=== PATIENT | female | born 1990 | race Caucasian/White ===

== ENCOUNTER 2017-12-27 04:58 | Day surgery (SDC) | payer OTHER ==
[2017-12-26 08:32] VITALS: BMI 28.0
[2017-12-27] MEDS ORDERED: BUPIVACAINE HCL/PF 0.5% (5MG/ML) 10 ML VIAL ONE (09:14)
[2017-12-27] MEDS ORDERED: LIDOCAINE 1%/EPI 1:100000 (20 ML MULTI DOSE VIAL) ONE (09:14)
--- NOTE | 2017-12-27 09:16 | HP ---
Satellite [facility] - Chief Complaint Chief Complaint: LEFT KNEE PAIN History Source: Patient - Past Medical History Allergies/Adverse Reactions: Allergies Allergy/AdvReac Type Severity Reaction Status Date / Time No Known Allergies Allergy Verified 12/26/17 08:32 ...LMP: 12/19/17 - Current Medications Current Medications: Home Medications Medication Instructions Recorded NK [No Known Home Medication] 12/26/17 Satellite Physical Exam - Physical Examination Vital Signs: Vital Signs Period Temp Pulse Resp BP Sys/Silva Pulse Ox Last 24 Hr 98.4 F 86 18 110/56 97 Extremities: Other (+ JOINT LINE TENDERNESS) Satellite Impression/Plan - Impression/Plan Impression: INTERNAL DERANGEMENT LEFT KNEE Operative Procedure: ARTHROSCOPY LEFT KNEE Date to be Performed: 12/27/17
[2017-12-27] MEDS ORDERED: MIDAZOLAM HCL 2 MG/2 ML SINGLE DOSE VIAL ONE (09:21)
[2017-12-27] MEDS ORDERED: PROPOFOL 20 ML ONE (09:27)
[2017-12-27] MEDS ORDERED: LIDOCAINE HCL/PF 2% SDV 5ML VIAL ONE (09:27)
[2017-12-27] MEDS ORDERED: DEXAMETHASONE SOD PHOSPHATE 4 MG/1 ML VIAL ONE (09:28)
--- NOTE | 2017-12-27 09:56 | OP ---
Operative Note - Note: Operative Date: 12/27/17 ([facility]) Pre-Operative Diagnosis: left knee internal derangement Operation: left knee arthroscopy with PMM and PLM Post-Operative Diagnosis: Same as Pre-op Surgeon: Paulo Alexandra Customer Consultant: Ronald Gaitan Anesthesiologist/MACHINE BILLER: Jerry Grace Anesthesia: General, Local Specimens Removed: shavings Estimated Blood Loss (mls): 5 Operative Report Dictated: Yes
[2017-12-27] MEDS ORDERED: ONDANSETRON 4 MG/2 ML VIAL IVPUSH PRN (10:04)
[2017-12-27] MEDS ORDERED: oxyCODONE HCL 5 MG TABLET PO PRN (10:04)
[2017-12-27] MEDS ORDERED: LACTATED RINGERS SOLUTION 1,000 ML IV SCH (10:15)
[2017-12-27 11:19] VITALS: TEMP 97.9
[2017-12-27 11:26] VITALS: PULSE 68
--- NOTE | 2017-12-27 12:16 | OP ---
DATE OF OPERATION: 12/27/2017 PREOPERATIVE DIAGNOSIS: Internal derangement, left knee. POSTOPERATIVE DIAGNOSIS: Internal derangement, left knee. PROCEDURE: Arthroscopy, left knee, with partial medial and lateral meniscectomy. SURGICAL ATTENDING: Paulo Alexandra MD MATERIALS SCIENTIST: Ronald Gaitan MD ANESTHESIA: General with LMA. CLOSURE: 4-0 nylon. COMPLICATIONS: None. CONDITION: To recovery in stable condition. DESCRIPTION OF OPERATIVE PROCEDURE: The patient taken to the operating room on December 27, 2017. General anesthesia with LMA was administered by the anesthesiologist. Left lower extremity was prepped and draped in the usual sterile fashion. The medial and lateral infrapatellar portal sites were infiltrated with 1% xylocaine with epinephrine. Both portals were then made with a 15-blade for blunt trocar. The scope was placed in the inferolateral portal to the suprapatellar pouch. The knee was infused with a cocktail of 10 mL of 1% xylocaine, 10 mL of 0.5% Marcaine, and 20 mL of arthroscopic saline. After the anesthetic was allowed to sit in the knee for a while, we continued with the procedure. The medial and lateral gutters were visualized to be clean. The undersurfaces of the patella and trochlea were visualized to be intact. With valgus stress on the knee, the medial compartment was entered, and medial meniscus had a small flap tear of its anterior horn. This was debrided back to stable meniscal tissue with meniscal biter and arthroscopic shaver. The medial femoral condyle was probed and found to be intact, as well as the medial tibial plateau. At 90 degrees, the ACL was visualized and probed and found to be intact. In the figure-of-4 position, the lateral compartment was entered. The lateral meniscus also had a small flap tear of its posterior horn. This was debrided back to stable meniscal tissue with meniscal biter and arthroscopic shaver. The lateral femoral condyle was found to be intact, as well as the lateral tibial plateau. The knee was irrigated with copious amounts of irrigation. The portal was closed with 4-0 nylon. Prior to closure, 20 mL of 0.5% Marcaine was infused into the knee for postoperative analgesia. Sterile pressure dressing was placed over the knee. The patient awakened from anesthesia and transferred to recovery in stable condition with no complication. ESTIMATED BLOOD LOSS: Negligible. Gely SINGH/[id number]
[2017-12-27 14:21] VITALS: BP 100/58
--- NOTE | 2017-12-28 17:55 | PATH ---
Surgical Pathology Report Patient Name: CARLOS LOPEZ [facility]. Rec. #: [id number] /Age/Gender: 1990 (Age: 27) / F Account: [id number] Location: [facility] SURGICAL Taken: 12/27/2017 Received: 12/27/2017 Reported: 12/28/2017 Physicians: Gely Belcher M.D. Specimen(s) Received LEFT KNEE SHAVINGS Clinical History Left knee tear Final Diagnosis KNEE SHAVINGS, LEFT, ARTHROSCOPY: FRAGMENTS OF DENSE FIBROCONNECTIVE TISSUE, ADIPOSE TISSUE, SKIN, AND SYNOVIUM. Electronically Signed Ana Flores M.D. Gross Description Received in formalin labeled "left knee shavings," is a 2.2 x 1.5 x 0.2 cm aggregate of chatterjee soft tissue fragments. The specimen is entirely submitted in one cassette. 12/27/201712/27/2017
== END 2017-12-27 12:55 | disposition home or self-care (01) ==
LOC: JASU-SURG 04:58
PROVIDERS: ATTEND Orthopaedic Surgery
PROC: 0SBD4ZZ Excision of Left Knee Joint, Percutaneous Endoscopic Approach (ICD-10-PCS; 2017-12-27)
PROC: 0SBD4ZZ Excision of Left Knee Joint, Percutaneous Endoscopic Approach (ICD-10-PCS; principal; 2017-12-27 09:30)
DX: M23.8X2 Other internal derangements of left knee (principal)
CPT/HCPCS: 84703; 88304-TC

== ENCOUNTER 2018-10-18 16:27 | Emergency (ER) | payer OTHER ==
--- NOTE | 2018-10-18 16:42 | PDOC ---
Rapid Medical Evaluation Time Seen by Provider: 10/18/18 16:40 Medical Evaluation: Allergies Allergy/AdvReac Type Severity Reaction Status Date / Time No Known Allergies Allergy Verified 12/26/17 08:32 10/18/18 16:40 I have performed a brief in-person evaluation of this patient. The patient presents with a chief complaint of:shortness of breath , tightness, recent URI with cough no asthma history Pertinent physical exam findings:lungs CTA b/laterally I have ordered the following:urine The patient will proceed to the ED for further evaluation.
[2018-10-18 16:47] VITALS: BP 101/67; PULSE 84; TEMP 97.8; BMI 26.2
--- NOTE | 2018-10-18 18:03 | PDOC ---
History of Present Illness - General Chief Complaint: Shortness of Breath Stated Complaint: Shortness of Breath Time Seen by Provider: 10/18/18 16:40 History Source: Patient Exam Limitations: No Limitations - History of Present Illness Initial Comments: 10/18/18 17:58 HISTORY OF PRESENT ILLNESS: 28-year-old woman presents emergency department for evaluation of nasal congestion cough and intermittent shortness of breath since August. Patient reports that the coughing and shortness of breath and become more frequent over that time. Patient reports occasionally when she is coughing , she becomes lightheaded which worsens when she changes positions. She denies fevers, chills, headaches, blurry vision, chest pain, abdominal pain, nausea, vomiting. No recent travel or sick contacts. PAST MEDICAL HISTORY: Denies past medical history SURGICAL HISTORY: Denies ALLERGIES: No known drug allergies REVIEW OF SYSTEMS General/Constitutional: Denies fever or chills. Denies weakness, weight change. HEENT: Denies change in vision. Denies ear pain or discharge. Denies sore throat. Cardiovascular: Denies chest pain. +shortness of breath. Respiratory: Dry unproductive cough. Denies wheezing, or hemoptysis. Gastrointestinal: Denies nausea, vomiting, diarrhea or constipation. Denies rectal bleeding. Genitourinary: Denies dysuria, frequency, or change in urination. Musculoskeletal: Denies joint or muscle swelling or pain. Denies neck or back pain. Skin and breasts: Denies rash or easy bruising. Neurologic: Denies headache, vertigo, loss of consciousness, or loss of sensation. Psychiatric: Denies depression or anxiety. Endocrine: Denies increased thirst. Denies abnormal weight change. Hematologic/Lymphatic: Denies anemia, easy bleeding, or history of blood clots. Allergic/Immunologic: Denies hives or skin allergy. Denies latex allergy. PHYSICAL EXAM General Appearance: Well-appearing, appropriately dressed. No apparent distress , no intoxication. HEENT: EOMI, PERRLA, normal ENT inspection, normal voice, pharynx normal. No conjunctival pallor. No photophobia, scleral icterus. TM's retracted bilaterally. OP mildly erythematous. Neck: Supple. Trachea midline. No tenderness, rigidity, carotid bruit, stridor , lymphadenopathy, or thyromegaly. Respiratory/Chest: Lungs CTAB. No shortness of breath, chest tenderness, respiratory distress, accessory muscle use. No crackles, rales, rhonchi, stridor , wheezing, dullness Cardiovascular: RRR. S1, S2. No JVD, murmur, bradycardia, tachycardia. Vascular Pulses: Dorsalis-Pedis (R): 2+, Dorsalis-Pedis (L): 2+ Gastrointestinal/Abdominal: Normal bowel sounds. Abdomen soft, non-distended. No tenderness or rebound tenderness. No organomegaly, pulsatile mass, guarding, hernia, hepatomegaly, splenomegaly. Lymphatic: No adenopathy, tenderness. Musculoskeletal/Extremities: Normal inspection. FROM of all extremities, normal capillary refill. Pelvis Stable. No CVA tenderness. No tenderness to extremities, pedal edema, swelling, erythema or deformity. Integumentary: Appropriate color, dry, warm. No cyanosis, erythema, jaundice or rash Neurologic: merchandise worker II-XII intact. Fully oriented, alert. Appropriate mood/affect. Motor strength 5/5. No appreciable EOM palsy, facial droop or sensory deficit. Past History - Past Medical History Allergies/Adverse Reactions: Allergies Allergy/AdvReac Type Severity Reaction Status Date / Time No Known Allergies Allergy Verified 10/18/18 16:40 Home Medications: Ambulatory Orders Oxycodone HCl/Acetaminophen [Percocet 5-325 mg Tablet -] 1 - 2 tab PO Q6H #30 tab MDD 8 12/27/17 Anemia: No Asthma: No Cancer: No Cardiac Disorders: No CVA: No COPD: No CHF: No Dementia: No Diabetes: No GI Disorders: No Disorders: No HTN: No Hypercholesterolemia: No Liver Disease: No Seizures: No Thyroid Disease: No - Immunization History Immunization Up to Date: Yes - Suicide/Smoking/Psychosocial Hx Smoking History: Never smoked Have you smoked in the past 12 months: No Hx Alcohol Use: No Drug/Substance Use Hx: No Substance Use Type: None Hx Substance Use Treatment: No *Physical Exam - Vital Signs Last Vital Signs Temp Pulse Resp BP Pulse Ox 97.8 F 84 18 101/67 100 10/18/18 16:40 10/18/18 16:40 10/18/18 16:40 10/18/18 16:40 10/18/18 16:40 Moderate Sedation - Procedure Monitoring Vital Signs: Procedure Monitoring Vital Signs Temperature 97.8 F 10/18/18 16:40 Pulse Rate 84 10/18/18 16:40 Respiratory Rate 18 10/18/18 16:40 Blood Pressure 101/67 10/18/18 16:40 O2 Sat by Pulse Oximetry (%) 100 10/18/18 16:40 Medical Decision Making - Medical Decision Making 10/18/18 18:36 A/P: 28 old female cough and shortness of breath for the past 10 weeks TMs retracted bilaterally Oropharynx mildly erythematous Respirations even and unlabored Patient is speaking in full sentences Lungs clear to auscultation bilaterally RRR. No murmur, rub or gallop noted Exam is consistent with upper respiratory infection. I'll discharge the patient home with symptomatic treatment. *DC/Admit/Observation/Transfer Diagnosis at time of Disposition: URI (upper respiratory infection) Qualifiers: URI type: unspecified viral URI Qualified Code(s): J06.9 - Acute upper respiratory infection, unspecified - Discharge Dispostion Disposition: HOME Condition at time of disposition: Stable Decision to Admit order: No - Referrals Referrals: Anna Meléndez [Primary Care Provider] - - Patient Instructions Additional Instructions: Rest, drink lots of fluids: Teas, water, soups, Pedialyte Saltwater gargles Steamy showers/seem to face break up mucus Avoid contact with others until fevers and cough resolved Lots of handwashing and good hygiene Continue [id number] medications for symptomatic relief Tylenol or Motrin for fever and pain Followup with private physician in one to 2 days as needed Return to emergency department for worsened symptoms, fevers, dehydration - Post Discharge Activity
--- NOTE | 2018-10-19 09:09 | EKG ---
Test Reason : Blood Pressure : / mmHG Vent. Rate : 066 BPM Atrial Rate : 066 BPM P-R Int : 148 ms QRS Dur : 088 ms QT Int : 426 ms P-R-T Axes : 048 094 071 degrees QTc Int : 446 ms NORMAL SINUS RHYTHM RIGHTWARD AXIS BORDERLINE ECG NO PREVIOUS ECGS AVAILABLE Confirmed by HILARIO RUSH, NELLY ([id number]) on 10/19/2018 9:09:15 AM Referred By: Confirmed By:NELLY RICH MD
== END 2018-10-18 18:46 | disposition home or self-care (01) ==
LOC: JER 16:27 → JERFT 16:27
DX: J06.9 Acute upper respiratory infection, unspecified (principal)
CPT/HCPCS: 84703; 93005; 93010; 99281-25

== ENCOUNTER 2021-07-31 17:15 | Inpatient (IN) | payer OTHER ==
[2021-07-31] MEDS ORDERED: AMPICILLIN - 2 GM in SODIUM CHLORIDE 100 ML IVPB ONE (20:30)
[2021-07-31 20:42] VITALS: BMI 35.7
[2021-07-31] MEDS ORDERED: AMPICILLIN SODIUM 2 GM VIAL ONE (21:11)
[2021-07-31] MEDS ORDERED: PCA PUMP NR ONE (21:11)
[2021-07-31] MEDS ORDERED: LIDOCAINE HCL 1% PRESERVATIVE FREE - 30ML VIAL ONE (21:11)
[2021-07-31] MEDS ORDERED: FENTANYL/BUPIVACAINE/NS/PF - PCEA - 50 ML DISP.SYRIN EP ONE (21:11)
[2021-07-31] MEDS ORDERED: ELECTROLYTE-148 SOLN 1,000 ML IV ONE (21:45)
[2021-07-31] MEDS ORDERED: BUPIVACAINE HCL/PF 0.25% (2.5MG/ML) 10 ML VIAL ONE (21:47)
[2021-07-31] MEDS ORDERED: ELECTROLYTE-148 SOLN 1,000 ML IV SCH (22:15)
[2021-07-31] MEDS: FENTANYL/BUPIVACAINE/NS/PF - PCEA - 50 ML DISP.SYRIN EP SCH (22:20)
[2021-07-31] MEDS ORDERED: NALOXONE HCL 0.4 MG/ML VIAL IVPUSH PRN (22:35)
[2021-07-31] MEDS ORDERED: AMPICILLIN SODIUM 1 GM VIAL ONE (22:40)
[2021-08-01] MEDS: AMPICILLIN - 1 GM in SODIUM CHLORIDE 100 ML IVPB SCH ×4 (00:35→13:29)
[2021-08-01] MEDS ORDERED: PCA PUMP NR ONE ×2 (01:40→05:55)
[2021-08-01] MEDS ORDERED: FENTANYL/BUPIVACAINE/NS/PF - PCEA - 50 ML DISP.SYRIN EP ONE ×2 (01:40→10:20)
[2021-08-01] MEDS: FENTANYL/BUPIVACAINE/NS/PF - PCEA - 50 ML DISP.SYRIN EP SCH (02:20)
[2021-08-01] MEDS ORDERED: BUPIVACAINE HCL/PF 0.25% (2.5MG/ML) 10 ML VIAL ONE (02:52)
[2021-08-01] MEDS ORDERED: AMPICILLIN SODIUM 1 GM VIAL ONE ×2 (03:59→08:39)
[2021-08-01] MEDS ORDERED: OXYTOCIN 30 UNITS in 0.9% NS 30 UNIT/500 ML INFUS.BAG IVPB ONE (04:53)
[2021-08-01] MEDS ORDERED: OXYTOCIN 30 UNITS in 0.9% NS 30 UNIT/500 ML INFUS.BAG IVPB SCH (05:00)
[2021-08-01] MEDS ORDERED: LIDOCAINE HCL 1% PRESERVATIVE FREE - 30ML VIAL ONE (10:17)
[2021-08-01] MEDS ORDERED: OXYTOCIN 20 UNITS in 0.9% NS 20 UNIT/1,000 ML INFUS.BAG IV ONE (10:17)
[2021-08-01] MEDS ORDERED: BENZOCAINE 20% 57 GM BOTTLE TP PRN (11:01)
[2021-08-01] MEDS ORDERED: ACETAMINOPHEN 325 MG TABLET (FP) PO PRN ×2 (11:01→11:09)
[2021-08-01] MEDS ORDERED: METHYLERGONOVINE MALEATE 0.2 MG/1 ML AMP IM PRN (11:01)
[2021-08-01] MEDS ORDERED: WITCH HAZEL 50% (TUCKS) 40 PAD/JAR PAD TP PRN (11:01)
[2021-08-01] MEDS ORDERED: IBUPROFEN 600 MG TABLET (FP) PO PRN ×2 (11:01→11:09)
[2021-08-01] MEDS ORDERED: BENZOCAINE 28 GM HEMORRHOIDAL OINTMENT TP PRN (11:01)
[2021-08-01] MEDS ORDERED: BISACODYL 10 MG SUPP.RECT RC PRN (11:01)
[2021-08-01 11:06] LABS: CORD BASE EXCESS -6.1 mmol/L (0-2); CORD HCO3 18.3 mmHg (20-29); CORD PCO2 33.5 mmHg (30-78); CORD pH 7.355 (7.14-7.44)
[2021-08-01 11:09] LABS: CORD PCO2 54.9 mmHg (30-78); CORD pH 7.221 (7.14-7.44)
[2021-08-01] MEDS ORDERED: OXYTOCIN 20 UNITS in 0.9% NS 20 UNIT/1,000 ML INFUS.BAG IV SCH (11:15)
[2021-08-02 08:39] LABS: BASO % 0.1 % (0-2.0); EOS % 0.5 % (0-4.5); HEMATOCRIT 28.4 % (32.4-45.2); MCH 33.5 pg (25.7-33.7); MEAN CELL VOLUME 95.7 fl (80-96); MONO % 9.6 % (3.8-10.2); NEUT % 79.8 % (42.8-82.8); PLATELET COUNT 263 10^3/uL (134-434); RBC 2.97 M/mm3 (3.60-5.2); RDW 13.7 % (11.6-15.6); WHITE BLOOD COUNT 19.6 K/mm3 (4.0-10.0)
[2021-08-02] MEDS: PRENATAL VITAMINS W/ FOLIC ACID TABLET (FP) PO SCH (10:12)
[2021-08-02] MEDS ORDERED: SENNOSIDES/DOCUSATE COMBO (SENNA PLUS) TABLET (UD) PO PRN (22:00)
[2021-08-03 09:25] VITALS: BP 115/73; PULSE 74; TEMP 98.6
[2021-08-03] MEDS: PRENATAL VITAMINS W/ FOLIC ACID TABLET (FP) PO SCH (11:00)
== END 2021-08-03 13:17 | disposition home or self-care (01) | DRG 807 ==
LOC: JDEL 17:15 → JLDR 20:05 → J3W 08-01 13:20
PROVIDERS: ADMIT Obstetrics & Gynecology; ATTEND Obstetrics & Gynecology
PROC: 0HQ9XZZ Repair Perineum Skin, External Approach (ICD-10-PCS; principal; 2021-08-01)
PROC: 10E0XZZ Delivery of Products of Conception, External Approach (ICD-10-PCS; 2021-08-01)
DX: O99.824 Streptococcus B carrier state complicating childbirth (principal); O48.0 Post-term pregnancy; O70.0 First degree perineal laceration during delivery; Z3A.40 40 weeks gestation of pregnancy; Z37.0 Single live birth
CPT/HCPCS: 36415; 36600; 59409; 82803; 85025